=== PATIENT | male | born 1965 | race Caucasian/White ===

== ENCOUNTER → 2017-04-13 | Outpatient (CLI) | payer OTHER | LOC: US 08:15 | DX: R74.0 Nonspecific elevation of levels of transaminase and lactic acid dehydrogenase [LDH] (principal); E78.5 Hyperlipidemia, unspecified; K76.89 Other specified diseases of liver | CPT/HCPCS: 36415; 76705; 80074; 82103; 82728; 83540; 83550; 86039; 86255 ==